=== PATIENT | female | born 1965 | race Two or more races ===

== ENCOUNTER 2020-09-27 09:45 | Inpatient (IN) | payer OTHER ==
[~2020-09-27] VITALS: Ht 149.9 cm; Wt 83.9 kg
[~2020-09-27 09:45] MED LIST: ASA81 MG PO; CIPRO500 MG PO; CLONAZEPAM1 MG PO; COZAAR50 MG PO; FLAGYL500MG PO; LEVAQUIN750 MG PO; METFORMIN HCL500 M2 PO; NEURONTIN800 MG PO; RIFAMPIN300 MG PO; TOPROL XL25 M1 PO; VANCOMYCIN HCL1 GM IV
[2020-09-27] MEDS ORDERED: GABAPENTIN PO (10:44)
[2020-10-05] MEDS ORDERED: GABAPENTIN400 MG (11:21)
[2020-10-05] MEDS ORDERED: MEDROLPACK PO (14:43)
[2020-10-05] MEDS ORDERED: COLACE100 MG PO (14:43)
[2020-10-05] MEDS ORDERED: BACTRIM DS TAB1 EACH PO (14:43)
[2020-10-05] MEDS ORDERED: DIAZEPAM5 MG PO (14:43)
[2020-10-05] MEDS ORDERED: NEURONTIN800 MG PO (14:43)
[2020-10-05] MEDS ORDERED: PERCOCET 5-3251 EACH PO (14:43)
== END 2020-10-06 13:16 | disposition home or self-care (01) | DRG 455 ==
LOC: O/R 10-05 08:37 → PED 10-05 08:37 → SURH 10-05 09:45 → PED 10-05 19:34 → SURH 10-05 23:00 → PED 10-06 13:16
PROVIDERS: ADMIT Orthopaedic Surgery Orthopaedic Surgery of the Spine; ATTEND Orthopaedic Surgery Orthopaedic Surgery of the Spine
PROC: 0SG00A0 Fusion of Lumbar Vertebral Joint with Interbody Fusion Device, Anterior Approach, Anterior Column, Open Approach (ICD-10-PCS; 2020-10-05)
PROC: 0SG00J1 Fusion of Lumbar Vertebral Joint with Synthetic Substitute, Posterior Approach, Posterior Column, Open Approach (ICD-10-PCS; 2020-10-05)
PROC: 0SB20ZZ Excision of Lumbar Vertebral Disc, Open Approach (ICD-10-PCS; principal; 2020-10-05 23:00)
DX: M43.16 Spondylolisthesis, lumbar region (principal); M48.062 Spinal stenosis, lumbar region with neurogenic claudication